=== PATIENT | male | born 1935 | race Caucasian/White ===

== ENCOUNTER 2017-01-29 07:21 | Inpatient (IN) ==
[2017-01-26 13:14] LABS: Basophils # (Auto) 0 K/mcL (0.0-0.3); Basophils % (Auto) 0.5 % (0.0-2.0); Eosinophils # (Auto) 0.1 K/mcL (0.0-0.7); Eosinophils % (Auto) 1.8 % (0.0-7.0); Granulocytes % (Auto) 77.7 % (38.0-78.0); Lymphocytes # (Auto) 0.9 K/mcL (1.5-4.8); Lymphocytes % (Auto) 13.2 % (15.5-49.0); Mean Cell Volume 86.2 fL (80.0-100.0); Mean Corpuscular HGB Conc 33.2 g/dL (31.0-36.0); Mean Corpuscular Hemoglobin 28.6 pg (26.0-34.0); Monocytes # (Auto) 0.5 K/mcL (0.1-0.9); Monocytes % (Auto) 6.8 % (1.0-12.0); Platelet Count 202 K/mcL (140-440); RBC 5.27 M/mcL (4.50-5.90); Red Cell Distribution Width 14.8 % (11.5-14.5)
[~2017-01-29 07:21] MED LIST: ceFAZolin 1 GM VIAL IV SCH
[2017-01-29] MEDS ORDERED: ONDANSETRON 4 MG/2 ML VIAL ONE (09:45)
[2017-01-29] MEDS ORDERED: PROPOFOL 200 MG/20 ML VIAL IV ONE (09:45)
[2017-01-29] MEDS ORDERED: KETAMINE 100 MG/ML ML ONE (09:45)
[2017-01-29] MEDS ORDERED: LIDOCAINE HCL/PF 100 MG/5 ML SYRINGE IV ONE (09:45)
[2017-01-29] MEDS ORDERED: GLYCOPYRROLATE 0.2 MG/ML VIAL IV ONE (09:45)
[2017-01-29] MEDS ORDERED: PHENYLEPHRINE 10 MG/ML VIAL ONE (09:45)
[2017-01-29] MEDS ORDERED: MIDAZOLAM 5 MG/5 ML VIAL ONE (09:45)
[2017-01-29] MEDS ORDERED: ceFAZolin 1 GM VIAL ONE (09:50)
[2017-01-29] MEDS ORDERED: fentaNYL 100 MCG/2 ML VIAL IV PRN (09:57)
[2017-01-29] MEDS ORDERED: METHOCARBAMOL 1,000 MG/10 ML VIAL IV PRN (09:57)
[2017-01-29] MEDS ORDERED: HYDROmorphone 2 MG/ML SYRINGE IV PRN (09:57)
[2017-01-29] MEDS ORDERED: IPRATROPIUM/ALBUTEROL 3 ML AMPUL.NEB NEB PRN (09:57)
[2017-01-29] MEDS ORDERED: NALOXONE HCL 0.4 MG/ML VIAL IV PRN (09:57)
[2017-01-29] MEDS ORDERED: FLUMAZENIL 0.1 MG/ML ML IV PRN (09:57)
[2017-01-29] MEDS ORDERED: METOPROLOL TARTRATE 5 MG/5 ML VIAL IV PRN (09:57)
[2017-01-29] MEDS ORDERED: BENZOCAINE/MENTHOL 1 LOZENGE PO PRN (09:57)
[2017-01-29] MEDS ORDERED: ePHEDrine 50 MG/ML AMPUL IV PRN (09:57)
[2017-01-29] MEDS ORDERED: ONDANSETRON 4 MG/2 ML VIAL IV PRN ×2 (09:57→10:43)
[2017-01-29] MEDS ORDERED: ATROPINE SULFATE 0.4 MG/ML VIAL IV PRN (09:57)
[2017-01-29] MEDS ORDERED: diphenhydrAMINE 50 MG/ML VIAL IV PRN (09:57)
[2017-01-29] MEDS ORDERED: LACTATED RINGERS 1,000 ML IV SCH (10:00)
[2017-01-29] MEDS ORDERED: HYDROcodone/APAP 10/325MG TABLET PO ONE (10:30)
[2017-01-29] MEDS ORDERED: HYDROcodone/APAP 5/325MG TABLET PO PRN (10:43)
[2017-01-29] MEDS ORDERED: ACETAMINOPHEN 500 MG TABLET PO PRN (10:44)
[2017-01-29] MEDS ORDERED: [UNRECOGNIZED DRUG - OTHER] NAS PRN (10:44)
[2017-01-29] MEDS ORDERED: LORazepam 0.5 MG TABLET PO PRN (10:44)
[2017-01-29] MEDS ORDERED: IPRATROPIUM 0.03% NAS PRN (10:44)
[2017-01-29] MEDS ORDERED: SODIUM CHLORIDE NAS PRN (10:44)
[2017-01-29] MEDS ORDERED: NON FORMULARY MEDICATION 1 DOSE MISCELL (Epinephrine [Epipen] 0.3 MG) SUB-Q SCH (10:45)
--- NOTE | 2017-01-29 10:45 | Brief Operative Note ---
Date of procedure: 01/29/17 Pre-op diagnosis: hematuria, phimosis Post-op diagnosis: same Procedure: cystoscopy, circumcision Grafts/Implants: No Anesthesia: GLMA Findings: see note Complications: none Surgeon: Timothy Espinosa Specimens Removed/Pathology: none sent Condition: stable Disposition: PACU
--- NOTE | 2017-01-29 10:46 | Discharge Plan ---
Discharge Plan - Patient/Caregiver Discharge Instructions Activity: increase activity as tolerated Diet: Regular Diet Additional Instructions: Activities as tolerated. Drink at least 8-10 glasses of fluid daily. If dressing falls off leave off. You may have some bleeding when you urinate for up to 5 days - Follow up Plan Follow up with: Timothy Espinosa MD [Physician] - 02/27/17 9:30 am Disposition: Home, Self-Care Prognosis: Good Rehab Potential: Good Overall status at discharge: patient is back to baseline
[2017-01-29] MEDS ORDERED: LIDOCAINE IJ ONE (10:52)
[2017-01-29] MEDS ORDERED: EPINEPHRINE IJ ONE (10:52)
--- NOTE | 2017-01-29 11:24 | Operative Note ---
DATE OF OPERATION: 01/29/2017 PREOPERATIVE DIAGNOSIS: Hematuria and phimosis. POSTOPERATIVE DIAGNOSIS: Hematuria and phimosis. PROCEDURE PERFORMED: Circumcision and cystoscopy. SURGEON: Timothy Espinosa MD INDICATION: The patient is an 81-year-old gentleman with Alzheimer's disease who has had blood in his diaper. They do not know if this is from the bowel or the bladder. He could not be examined because of a tight phimosis and presents now for treatment. PROCEDURE IN DETAIL: Patient was identified and consent was signed. He was given general anesthesia, placed in supine position, prepped and draped in a standard fashion. Penile block was performed using 0.25% Marcaine and this seemed to have a good block. We then had to do a dorsal slit because of the tightness of the foreskin and we were able to finally break down the adhesions and reprep the area. At this point the coronal margin appeared normal. There were no penile masses. We then were able to make a circumferential incision approximately 2 mm away from the coronal margin and carry this down to Lima's fascia. A corresponding incision was made along the shaft skin. The intervening skin was removed and bleeding was controlled with electrocautery. We reapproximated the cut edges with 3-0 Chromic and I was pleased with the overall appearance. At this time the cystoscopy was performed using a flexible cystoscope. We were able to enter the urethra. This appeared normal. Prostate did have trilobar hypertrophy and upon entering the bladder there was 4+ trabeculation. No tumors or masses were seen. Orifices were in their normal position. No abnormalities were noted. The cystoscope was removed. Sterile dressings were applied to the penis and the patient was awoken, taken to the recovery room in stable condition and tolerated the procedure well. There was minimal blood loss. ChristinaZ:kerry Job ID: [id number] Doc ID: [id number] Timothy Espinosa MD
[2017-01-29] MEDS ORDERED: DIAZEPAM 10 MG/2 ML SYRINGE IV PRN (12:05)
[2017-01-29] MEDS ORDERED: HALOPERIDOL LACTATE 5 MG/ML VIAL IV ONE (12:28)
[2017-01-29] MEDS ORDERED: LORazepam 2 MG/ML VIAL IV PRN ×2 (12:55→13:58)
[2017-01-29] MEDS ORDERED: HALOPERIDOL LACTATE 5 MG/ML VIAL IV PRN (12:56)
[2017-01-29] MEDS ORDERED: guaiFENesin/DEXTROMETHORPHAN ORAL SOL PO PRN (14:09)
[2017-01-29] MEDS: ACETAMINOPHEN 650 MG/65 ML BOTTLE IV PRN ×3 (15:03→21:37)
[2017-01-29] MEDS: 0.9 % SODIUM CHLORIDE 10 ML SYRINGE IV SCH ×2 (15:32→21:03)
[2017-01-29] MEDS: HYDROCORTISONE CRM 1% TUBE 30GM TOPICAL SCH (20:29)
[2017-01-29] MEDS: DIVALPROEX 125 MG CAP.SPRINK PO SCH (20:57)
[2017-01-29] MEDS ORDERED: LATANOPROST EYE OU SCH (21:00)
--- NOTE | 2017-01-30 07:48 | General Surgery Progress Note ---
Surgical - Auxillary Note - Subjective Patient Information: Note initiated : 01/30/17 at 7:44 am Service Date, if different from initiated Date: [] Patient: Timothy Carrington 81 y/o M admitted on for Cystoscopy, Circumcision. Chief Complaint: agitation Patient was stable through the night. had to be straight catheterized 2x and hodges catheter was placed without my knowledge. mental status is unchanged. WOULD not have placed catheter due to risk of self injury. have ordered catheter to be removed. may d/c to care center. f/u as outpatient.
[2017-01-30] MEDS ORDERED: MULTIVIT,THER IRON,CA,FA & MIN 1 TABLET PO SCH (09:00)
[2017-01-30] MEDS ORDERED: TIMOLOL OU SCH (09:00)
[2017-01-30] MEDS ORDERED: EYE OU SCH (09:00)
[2017-01-30] MEDS ORDERED: BRIMONIDINE TARTRATE OU SCH (09:00)
[2017-01-30] MEDS: 0.9 % SODIUM CHLORIDE 10 ML SYRINGE IV SCH ×3 (11:22→20:42)
[2017-01-30] MEDS: DIVALPROEX 125 MG CAP.SPRINK PO SCH ×3 (11:22→20:41)
[2017-01-30] MEDS: HYDROCORTISONE CRM 1% TUBE 30GM TOPICAL SCH ×2 (11:23→20:06)
[2017-01-30] MEDS: ACETAMINOPHEN 650 MG/65 ML BOTTLE IV PRN ×2 (13:00→21:41)
[2017-01-30 15:08] LABS: Mean Cell Volume 85.4 fL (80.0-100.0); Mean Corpuscular HGB Conc 33.5 g/dL (31.0-36.0); Mean Corpuscular Hemoglobin 28.6 pg (26.0-34.0); Platelet Count 183 K/mcL (140-440); RBC 5.46 M/mcL (4.50-5.90); Red Cell Distribution Width 14.5 % (11.5-14.5)
--- NOTE | 2017-01-30 15:10 | XRay Report ---
CLINICAL INFORMATION: Shortness of breath COMPARISON: None. FINDINGS: Heart size, mediastinum and pulmonary vessels are normal. There is minor bibasilar atelectasis no effusions. Bones soft tissues are normal IMPRESSION: Mild bibasilar atelectasis Interpreted and Authenticated by: Kai Bowers 01/30/17
[2017-01-30 15:45] LABS: Lymphocytes % 9 % (15-49); Monocytes % (Manual) 6 % (1-12); Platelet Estimate NORMAL (NORMAL); RBC Morphology NORMAL (NORMAL); Segmented Neutrophils % 85 % (38-78)
--- NOTE | 2017-01-30 16:43 | Internal Medicine Consult Note ---
Medical - CN: HPI - Data of Consult Consult date: 01/30/17 Requesting Physician: Timothy Espinosa Primary Care Provider: Jessica Quiroga Family Provider: Jessica Quiroga - Consult Narrative Reason for consult: acute change in mental status History of present illness: Mr. Carrington is a 81 year old M admitted for complaints of hematuria. Patient underwent cystoscopy by Dr. Espinosa. postprocedure patient has been getting progressively delirious confused and frequently hallucinating. To counter delirium and hallucinations patient receive doses of Ativan and Haldol. this morning he was fairly confused and therefore could not be discharged. Subsequently hospitalist service was consulted for further evaluation. Per nursing staff patient also as found to have temperature of 99.7. At the time of examination patient is accompanied with his and son. He was occasionally moaning but was not able to rovide answer to questions. most of the history was obtained from son and his . Patient resides at assisted care living. He suffers from advanced dementia and has not been complicated over the last year and a half. At his baseline he needs assistance for activities of daily living. As per his he was in his baseline state of health prior to the episode of hematuria. eview of records revealed edications including Haldol/lorazepam/Depakote/ hydromorphone that was administered on 01/29. at this time patient is currently being monitored. All sedatives and anxiolytics and opioids will be discontinued. 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) Dementia with behavioral disturbance (Chronic) Glaucoma (Chronic) Hematuria (Chronic) Herpes zoster (Chronic) History of gastroesophageal reflux (GERD) (Chronic) History of needle biopsy (Chronic) prostate Hyperlipidemia (Chronic) group home use of drug (Chronic) Nocturia (Chronic) Phimosis (Chronic) Prostate cancer (Chronic) Rash of face (Chronic) Rhinitis (Chronic) Rosacea (Chronic) Slowing of urinary stream (Chronic) Upper respiratory infection (Chronic) Surgical history: istory of colonoscopy (Chronic) History of eye surgery (Chronic) foreign body History of surgery (Chronic) needle/cath placement for brachyther applic in pelvic organs History of tonsillectomy and adenoidectomy (Chronic) Family history: reviewed and not pertinent Pertinent family history: Acute myocardial infarction Addictive gambling Alcoholism Diabetes Osteoarthritis Parkinsons disease Rheumatoid arthritis Social history: marital status: occupational status: retired smoking status: Former smoker alcohol intake frequency: does not drink substance use type: does not use Cognitive capacity: dvanced dementia Functional capacity: bed bound Smoking status: Former smoker Have you smoked in the last 12 months: No Drug use: none Medical - CN: Meds Home Medications Medication Instructions Recorded Confirmed Type acetaminophen 500 mg tablet 500 mg PO TID PRN tab 12/24/16 01/26/17 History brimonidine-timolol 0.2 %-0.5 % 1 drp OPHTHALMIC ONCE ml 12/24/16 01/26/17 History eye drops dextromethorphan-guaifenesin 10 15 ml PO Q6H PRN ml 12/24/16 01/26/17 History mg-100 mg/5 mL oral liquid divalproex 250 mg tablet,delayed 250 mg PO BID 12/24/16 01/26/17 History release epinephrine 0.3 mg/0.3 mL 0.3 mg SUB-Q ONCE 12/24/16 01/26/17 History injection, auto-injector hydrocortisone 1 % topical cream 1 applic TOPICAL BID g 12/24/16 01/26/17 History ipratropium bromide 0.03 % nasal 2 spray INTRANASAL TID PRN ml 12/24/16 History spray latanoprost 0.005 % eye drops 1 drp OPHTHALMIC QHS ml 12/24/16 01/26/17 History lorazepam 0.5 mg tablet 0.5 mg PO BID PRN tab 12/24/16 01/26/17 History multivitamin tablet 1 tab-cap PO QDAY 12/24/16 01/26/17 History sodium chloride 0.65 % nasal spray 2 spray INTRANASAL TID PRN ml 12/24/1601/26 History aerosol Allergies Allergy/AdvReac Type Severity Reaction Status Date / Time Bees Allergy Severe Anaphylaxis Uncoded 01/29/17 14:43 Medical - CN: Exam - Constitutional Vitals: Temp Pulse Resp BP Pulse Ox 98.4 F 74 20 131/79 90 01/30/17 15:54 01/30/17 04:00 01/30/17 15:54 01/30/17 15:54 01/30/17 15:54 General appearance: average body habitus, disheveled Exam: pupils symmetric, 2 mm oral cavity dry No eardischarge head normocephalic/atraumatic Neck lymphadenopathy S1 and S2E SM grade 1,occasionally irregular Diminished breath sounds bases abdomen soft No lymphedema or joint swelling. No skin lesions obtunded state,GCS 2 Neuro-could not be examined Medical - CN: Result - Labs CBC & Chem 7: 01/30/17 14:29 01/30/17 14:29 Labs: Short CBC 01/30/17 Range/Units 14:29 WBC 10.4 (4.5-11.0) K/mcL Hgb 15.6 (13.5-16.5) g/dL Hct 46.6 (41.0-55.0) % Plt Count 183 (140-440) K/mcL Medical - CN: A/P (1) Change in mental status Status: Acute Assessment and plan: * Acute changes in mental status-likely opioid/sedative induced. However start thiamine. Hold benzos/opioids. CT head if fails to improve. Biochemical profile /UA/CBC to rule out infectious/metabolic process. * Advance underlying dementia-continue monitoring * Deconditioning-consider SNF transfer * History of COPD continue bronchodilators plan * Workup as above * monitor for 24-48 hours
[2017-01-30 17:05] LABS: ALT/SGPT 19 U/l (0-40); Albumin 3.6 gm/dL (3.2-5.2); Albumin/Globulin Ratio 1.2 (1.0-2.3); Alkaline Phosphatase 86 U/L (39-117); Bilirubin,Direct < 0.2 mg/dL (0.0-0.3); Blood Urea Nitrogen 16 mg/dl (8-23); Gamma Glutamyl Transpeptidase 12 U/L (8-61); Magnesium 1.9 mg/dL (1.6-2.5); Uric Acid 6.9 mg/dL (2.5-8.0)
[2017-01-30] MEDS ORDERED: SODIUM CHLORIDE NAS PRN (18:08)
[2017-01-30] MEDS ORDERED: ACETAMINOPHEN 500 MG TABLET PO PRN (18:08)
[2017-01-30] MEDS ORDERED: ONDANSETRON 4 MG/2 ML VIAL IV PRN (18:08)
[2017-01-30] MEDS ORDERED: IPRATROPIUM 0.03% NAS PRN (18:08)
[2017-01-30] MEDS ORDERED: [UNRECOGNIZED DRUG - OTHER] NAS PRN (18:08)
[2017-01-30] MEDS ORDERED: guaiFENesin/DEXTROMETHORPHAN ORAL SOL PO PRN (18:08)
[2017-01-30] MEDS: LATANOPROST EYE OU SCH (20:06)
[2017-01-30] MEDS ORDERED: 0.9 % SODIUM CHLORIDE 1,000 ML IV SCH (20:30)
[2017-01-30] MEDS: BACITRACIN TOPICAL OINT 15 GM TUBE TOPICAL SCH ×2 (21:38)
[2017-01-31 02:48] LABS: Appearance,Urine CLEAR; Bacteria,Urine 0 /hpf (0); Bilirubin,Urine NEG (NEG); Color,Urine YELLOW; Glucose,Urine (UA) NEGATIVE (NEG); Leukocyte Esterase,Urine 75 /uL (NEG); Mucus,Urine FEW /hpf (0); Nitrate,Urine NEG (NEG); Protein,Urine NEG (NEG); Specific Gravity,Urine 1.018 (1.000-1.035); Urine Blood >=1.0 mg/dL (<0.03); Urine RBC 73 /hpf (0-1); Urine Squamous Epithelial Cell 0 /hpf (0-4); Urine Transitional Epi Cells < 1 /hpf (0-2); Urine WBC 48 /hpf (0-4); Urobilinogen,Urine NEG (NEG)
[2017-01-31] MEDS: 0.9 % SODIUM CHLORIDE 10 ML SYRINGE IV SCH ×2 (04:44→12:41)
[2017-01-31 06:19] LABS: Mean Cell Volume 85.9 fL (80.0-100.0); Mean Corpuscular HGB Conc 33.4 g/dL (31.0-36.0); Mean Corpuscular Hemoglobin 28.7 pg (26.0-34.0); Platelet Count 184 K/mcL (140-440); RBC 5.51 M/mcL (4.50-5.90); Red Cell Distribution Width 14.4 % (11.5-14.5)
[2017-01-31 06:57] LABS: ALT/SGPT 19 U/l (0-40); Albumin 3.4 gm/dL (3.2-5.2); Albumin/Globulin Ratio 1.1 (1.0-2.3); Alkaline Phosphatase 80 U/L (39-117); Bilirubin,Direct < 0.2 mg/dL (0.0-0.3); Blood Urea Nitrogen 16 mg/dl (8-23); Gamma Glutamyl Transpeptidase 12 U/L (8-61); Uric Acid 6.8 mg/dL (2.5-8.0)
[2017-01-31 08:07] LABS: Eosinophils % (Manual) 2 % (0-7); Lymphocytes % 12 % (15-49); Monocytes % (Manual) 7 % (1-12); Platelet Estimate NORMAL (NORMAL); RBC Morphology NORMAL (NORMAL); Segmented Neutrophils % 78 % (38-78)
[2017-01-31] MEDS: TIMOLOL OU SCH (08:13)
[2017-01-31] MEDS: EYE OU SCH (08:13)
[2017-01-31] MEDS: BRIMONIDINE TARTRATE OU SCH (08:13)
[2017-01-31] MEDS: HYDROCORTISONE CRM 1% TUBE 30GM TOPICAL SCH ×2 (08:14→21:37)
[2017-01-31] MEDS: BACITRACIN TOPICAL OINT 15 GM TUBE TOPICAL SCH ×4 (08:21→19:52)
[2017-01-31] MEDS: DIVALPROEX 125 MG CAP.SPRINK PO SCH ×2 (08:22→21:30)
[2017-01-31] MEDS: MULTIVIT,THER IRON,CA,FA & MIN 1 TABLET PO SCH (08:22)
--- NOTE | 2017-01-31 09:46 | Internal Med Progress Note ---
Medical - PN: Subj Patient information: Note initiated : 01/31/17 at 9:44 am Service Date, if different from initiated Date: [] Patient: Timothy Carrington a 81 y/o M admitted on 01/30/17 for Cystoscopy, Circumcision. Chief Complaint: [] Interval history: 01/30- Mr. Carrington is a 81 year old M admitted for complaints of hematuria. Patient underwent cystoscopy by Dr. Espinosa. postprocedure patient has been getting progressively delirious confused and frequently hallucinating. To counter delirium and hallucinations patient receive doses of Ativan and Haldol. this morning he was fairly confused and therefore could not be discharged. Subsequently hospitalist service was consulted for further evaluation. Per nursing staff patient also as found to have temperature of 99.7. At the time of examination patient is accompanied with his and son. He was occasionally moaning but was not able to rovide answer to questions. most of the history was obtained from son and his . Patient resides at assisted care living. He suffers from advanced dementia and has not been complicated over the last year and a half. At his baseline he needs assistance for activities of daily living. As per his he was in his baseline state of health prior to the episode of hematuria. eview of records revealed edications including Haldol/lorazepam/Depakote/ hydromorphone that was administered on 01/29. at this time patient is currently being monitored. All sedatives and anxiolytics and opioids will be discontinued. 01/31- patient doing well. No overnight events. ble to open eyeshowever still unable to respond to commands. at bedside. Patient being fed by . No concerns per staff. nticipate discharge in 24-48 hours if mentation and cognition continues to improve. clearly feels he is still not at baseline - Constitutional Vitals: Vital Signs Temp Pulse Resp BP Pulse Ox 97.7 F 83 22 141/69 92 01/31/17 07:31 01/31/17 03:30 01/31/17 07:31 01/31/17 07:31 01/31/17 07:31 Period Temp Pulse Resp BP Sys/Polanco Pulse Ox Last 24 Hr 97.7 F-99.0 F 69-85 18-22 112-155/67-82 90-95 Intake and Output 01/30/17 01/31/17 01/31/17 21:59 05:59 13:59 Intake Total 65 / 65 Output Total 602 / 602 601 / 601 1500 / 1500 Balance -602 / -602 -536 / -536 -1500 / -1500 Weight 168 lb 5 oz Intake & Output: Intake & Output 01/30/17 01/31/17 01/31/17 21:59 05:59 13:59 Intake Total 65 / 65 Output Total 602 / 602 601 / 601 1500 / 1500 Balance -602 / -602 -536 / -536 -1500 / -1500 Weight 168 lb 5 oz Intake: IV 65 / 65 Output: Urine Catheter Amount 1000 / 1000 Void Amount 600 / 600 600 / 600 500 / 500 Straight 600 / 600 500 / 500 Straight Cath #3 600 / 600 # of times incontinent of 2 / 2 1 / 1 urine Other: Meal 1/2 jello, few sips of water Percent of Meal Consumed 50% Feeding Ability Total Assistance # Bowel Movements 1 # of times incontinent of 1 Bowels General appearance: cooperative, no acute distress Exam: more awake no agitation nonlabored breathing nondistended abdomen Medical - PN: Obj Da - Labs CBC & Chem 7: 01/31/17 04:44 01/31/17 04:44 Labs: Abnormal Lab Results 01/31/17 01/31/17 01/30/17 04:44 04:44 14:29 Seg Neutrophils % Lymphocytes % 12 L Carbon Dioxide 21 L 21 L Anion Gap 17.0 H Calcium 8.5 L 8.5 L AST 38 H Urine Ketones Urine Occult Blood Ur Leukocyte Esterase Urine RBC Urine WBC 01/30/17 01/30/17 14:29 01:12 Seg Neutrophils % 85 H Lymphocytes % 9 L Carbon Dioxide Anion Gap Calcium AST Urine Ketones 20 A Urine Occult Blood >=1.0 A Ur Leukocyte Esterase 75 A Urine RBC 73 H Urine WBC 48 H Meds: Medications Acetaminophen (Tylenol) 500 mg PO TIDP PRN PRN Reason: Pain Bacitracin (Bacitracin Topical Oint) 1 dose TOPICAL QID [facility] Last Admin: 01/31/17 08:21 Dose: 1 pkg Divalproex Sodium (Depakote Sprinkles) 250 mg PO BID [facility] Last Admin: 01/31/17 08:22 Dose: 250 mg Guaifenesin (Robitussin Dm) 15 ml PO Q6HP PRN PRN Reason: Allergy Symptoms Hydrocortisone (Hc Crm 1%) 1 dose TOPICAL BID [facility] Last Admin: 01/31/17 08:14 Dose: Not Given Acetaminophen (Ofirmev) 650 mg in 65 mls @ 130 mls/hr IV Q6HP PRN PRN Reason: PAIN/FEVER > 101 Last Infusion: 01/30/17 22:11 Dose: Infused Sodium Chloride (Sodium Chloride 0.9%) 1,000 mls @ 40 mls/hr IV .Q24H [facility] Last Admin: 01/30/17 20:42 Dose: 40 mls/hr Iron Carb/Multivit/[place]oure/Folic Acid (Multivitamin W/Minerals) 1 tab PO DAILY [facility] Last Admin: 01/31/17 08:22 Dose: 1 tab Ondansetron HCl (Zofran) 4 mg IV Q6HP PRN PRN Reason: Nausea And Vomiting Ipratropium 0.03% Nasal [place] [ Atrovent] 0.03% Nasal [place] 2 dose MIKAYLA TID PRN PRN Reason: Allergy Symptoms Sodium Chloride [ (Zap] Nasal [place]) 2 dose MIKAYLA TID PRN PRN Reason: Allergy Symptoms Brimonidine Tartrate /Timolol [Combigan] 0.2%-0.5% Eye Drops 1 dose OU DAILY [facility] Last Admin: 01/31/17 08:13 Dose: Not Given Latanoprost [Xalatan (] Eye Drops) 1 dose OU QHS [facility] Last Admin: 01/30/17 20:06 Dose: Not Given Sodium Chloride (Saline Flush) 5 ml IV Q8 [facility] Last Admin: 01/31/17 04:44 Dose: Not Given Medical - PN: A/P - Time Spent With Patient Total time spent is greater than 50% in coordination of care (as documented) at patient's floor/unit and/or counseling patient: 15 - 24 minutes (1) Change in mental status Status: Acute Assessment and plan: * Acute changes in mental status-likely opioid/sedative induced. clinically improved. Continue holding sedatives and hypnotics. * Advance underlying dementia-continue monitoring. Anticipate discharge in 24 hours * Deconditioning-consider SNF transfer a family agreeable * History of COPD continue bronchodilators nydia * physical therapy * observation for additional 24 hours * pre-existing medical condition on home meds Current Visit: Yes
[2017-01-31] MEDS: LATANOPROST EYE OU SCH (19:30)
[2017-02-01 06:30] LABS: Lymphocytes % 6 % (15-49); Monocytes % (Manual) 3 % (1-12); Platelet Estimate NORMAL (NORMAL); RBC Morphology NORMAL (NORMAL); Segmented Neutrophils % 89 % (38-78)
[2017-02-01 06:31] LABS: Mean Cell Volume 83.7 fL (80.0-100.0); Mean Corpuscular HGB Conc 33.5 g/dL (31.0-36.0); Platelet Count 149 K/mcL (140-440); RBC 6.16 M/mcL (4.50-5.90); Red Cell Distribution Width 13.8 % (11.5-14.5)
[2017-02-01 07:26] LABS: ALT/SGPT 25 U/l (0-40); Albumin 3.7 gm/dL (3.2-5.2); Albumin/Globulin Ratio 1.1 (1.0-2.3); Alkaline Phosphatase 87 U/L (39-117); Bilirubin,Direct < 0.2 mg/dL (0.0-0.3); Blood Urea Nitrogen 16 mg/dl (8-23); Gamma Glutamyl Transpeptidase 12 U/L (8-61); Uric Acid 6.6 mg/dL (2.5-8.0)
[2017-02-01] MEDS: DIVALPROEX 125 MG CAP.SPRINK PO SCH ×2 (08:02→20:30)
[2017-02-01] MEDS: MULTIVIT,THER IRON,CA,FA & MIN 1 TABLET PO SCH (08:02)
[2017-02-01] MEDS: EYE OU SCH (08:03)
[2017-02-01] MEDS: BRIMONIDINE TARTRATE OU SCH (08:03)
[2017-02-01] MEDS: HYDROCORTISONE CRM 1% TUBE 30GM TOPICAL SCH ×2 (08:03→20:32)
[2017-02-01] MEDS: BACITRACIN TOPICAL OINT 15 GM TUBE TOPICAL SCH ×4 (08:03→20:31)
[2017-02-01] MEDS: TIMOLOL OU SCH (08:03)
--- NOTE | 2017-02-01 09:32 | Internal Med Progress Note ---
Medical - PN: Subj Patient information: Note initiated : 02/01/17 at 9:28 am Service Date, if different from initiated Date: [] Patient: Timothy Carrington a 81 y/o M admitted on 01/30/17 for Cystoscopy, Circumcision. Chief Complaint: [] Interval history: 01/30- Mr. Carrington is a 81 year old M admitted for complaints of hematuria. Patient underwent cystoscopy by Dr. Espinosa. postprocedure patient has been getting progressively delirious confused and frequently hallucinating. To counter delirium and hallucinations patient receive doses of Ativan and Haldol. this morning he was fairly confused and therefore could not be discharged. Subsequently hospitalist service was consulted for further evaluation. Per nursing staff patient also as found to have temperature of 99.7. At the time of examination patient is accompanied with his and son. He was occasionally moaning but was not able to rovide answer to questions. most of the history was obtained from son and his . Patient resides at assisted care living. He suffers from advanced dementia and has not been complicated over the last year and a half. At his baseline he needs assistance for activities of daily living. As per his he was in his baseline state of health prior to the episode of hematuria. eview of records revealed edications including Haldol/lorazepam/Depakote/ hydromorphone that was administered on 01/29. at this time patient is currently being monitored. All sedatives and anxiolytics and opioids will be discontinued. 01/31- patient doing well. No overnight events. ble to open eyeshowever still unable to respond to commands. at bedside. Patient being fed by . No concerns per staff. nticipate discharge in 24-48 hours if mentation and cognition continues to improve. clearly feels he is still not at baseline 02/01- atient more alert however tachypneic. White count 13.4 up from 8000. await chest x-ray rule out aspiration pneumonia. Start empiric Zosyn. Blood cultures. MAXIMUM TEMPERATURE 99.4. Family at bedside. Ongoing physical therapy. Not quite at baseline. Anticipate SNF transfer on discharge if clinically improved in the next 48-72 hours - Constitutional Vitals: Vital Signs Temp Pulse Resp BP Pulse Ox 99.1 F H 85 24 H 118/76 92 02/01/17 07:43 02/01/17 03:40 02/01/17 07:43 02/01/17 07:43 02/01/17 07:43 Period Temp Pulse Resp BP Sys/Polanco Pulse Ox Last 24 Hr 97.9 F-99.4 F 85-93 22-24 118-166/76-97 91-93 Intake and Output 01/31/17 02/01/17 02/01/17 21:59 05:59 13:59 Intake Total 0 / 0 200 / 200 120 / 120 Output Total 2 / 2 3 / 3 1 / 1 Balance -2 / -2 197 / 197 119 / 119 Weight 165 lb Intake & Output: Intake & Output 01/31/17 02/01/17 02/01/17 21:59 05:59 13:59 Intake Total 0 / 0 200 / 200 120 / 120 Output Total 2 / 2 3 / 3 1 / 1 Balance -2 / -2 197 / 197 119 / 119 Weight 165 lb Intake: Oral 0 / 0 200 / 200 120 / 120 Output: # of times incontinent of 2 / 2 3 / 3 urine Other: Meal applesauce cup Breakfast Percent of Meal Consumed 100% 100% Feeding Ability Total Assistance Total Assistance # Bowel Movements 1 General appearance: no acute distress Exam: nonverbal following commands minimally Nonlabored breathing but tachypneic No pallor Medical - PN: Obj Da - Labs CBC & Chem 7: 02/01/17 04:36 02/01/17 04:36 Labs: Abnormal Lab Results 02/01/17 02/01/17 01/31/17 04:36 04:36 04:44 WBC 13.4 H RBC 6.16 H Hgb 17.3 H Seg Neutrophils % 89 H Lymphocytes % 6 L Carbon Dioxide 21 L Anion Gap 17.0 H Glucose 107 H Calcium 8.5 L AST 43 H 38 H Urine Ketones Urine Occult Blood Ur Leukocyte Esterase Urine RBC Urine WBC 01/31/17 01/30/17 01/30/17 04:44 14:29 14:29 WBC RBC Hgb Seg Neutrophils % 85 H Lymphocytes % 12 L 9 L Carbon Dioxide 21 L Anion Gap 17.0 H Glucose Calcium 8.5 L AST Urine Ketones Urine Occult Blood Ur Leukocyte Esterase Urine RBC Urine WBC 01/30/17 01:12 WBC RBC Hgb Seg Neutrophils % Lymphocytes % Carbon Dioxide Anion Gap Glucose Calcium AST Urine Ketones 20 A Urine Occult Blood >=1.0 A Ur Leukocyte Esterase 75 A Urine RBC 73 H Urine WBC 48 H Meds: Medications Acetaminophen (Tylenol) 500 mg PO TIDP PRN PRN Reason: Pain Bacitracin (Bacitracin Topical Oint) 1 dose TOPICAL QID [facility] Last Admin: 02/01/17 08:03 Dose: 1 pkg Divalproex Sodium (Depakote Sprinkles) 250 mg PO BID [facility] Last Admin: 02/01/17 08:02 Dose: 250 mg Guaifenesin (Robitussin Dm) 15 ml PO Q6HP PRN PRN Reason: Allergy Symptoms Hydrocortisone (Hc Crm 1%) 1 dose TOPICAL BID [facility] Last Admin: 02/01/17 08:03 Dose: Not Given Acetaminophen (Ofirmev) 650 mg in 65 mls @ 130 mls/hr IV Q6HP PRN PRN Reason: PAIN/FEVER > 101 Last Infusion: 01/30/17 22:11 Dose: Infused Iron Carb/Multivit/Bottom Liquor Attendant/Folic Acid (Multivitamin W/Minerals) 1 tab PO DAILY [facility] Last Admin: 02/01/17 08:02 Dose: 1 tab Ondansetron HCl (Zofran) 4 mg IV Q6HP PRN PRN Reason: Nausea And Vomiting Ipratropium 0.03% Nasal [place] [ Atrovent] 0.03% Nasal [place] 2 dose MIKAYLA TID PRN PRN Reason: Allergy Symptoms Sodium Chloride [ ([place]] Nasal [place]) 2 dose MIKAYLA TID PRN PRN Reason: Allergy Symptoms Brimonidine Tartrate /Timolol [Combigan] 0.2%-0.5% Eye Drops 1 dose OU DAILY [facility] Last Admin: 02/01/17 08:03 Dose: Not Given Latanoprost [Xalatan (] Eye Drops) 1 dose OU QHS [facility] Last Admin: 01/31/17 19:30 Dose: 1 dose Medical - PN: A/P - Time Spent With Patient Total time spent is greater than 50% in coordination of care (as documented) at patient's floor/unit and/or counseling patient: 25 - 35 minutes (1) Change in mental status Status: Acute Assessment and plan: * Acute changes in mental status-likely opioid/sedative induced. clinically improved. Continue holding sedatives and hypnotics. * leukocytosis-Rule out aspiration pneumonia ith chest x-ray. Blood cultures. Start antibiotic coverage. * History of COPD continue bronchodilators * Deconditioning-nticipate SNF transfer Plan * Physical therapy * ST eval * blood cultures/chest x-ray * Antibiotic coverage * transfer to inpatient status if evidence of pneumonia on chest imaging Current Visit: Yes
[2017-02-01] MEDS: PIPERACILLIN SODIUM/TAZOBACTAM 3.375 GM in DEXTROSE 5% IN WATER 50 ML IV SCH ×3 (11:39→17:55)
--- NOTE | 2017-02-01 13:26 | XRay Report ---
CLINICAL INFORMATION: Shortness of breath COMPARISON: 01/30/2017 FINDINGS: Heart size, mediastinum and pulmonary vessels are normal. There is mild atelectasis in both infrahilar regions. No effusions. IMPRESSION: Mild atelectasis - both infrahilar regions. Interpreted and Authenticated by: Kai Bowers 02/01/17
[2017-02-01] MEDS: LATANOPROST EYE OU SCH (21:31)
[2017-02-02] MEDS: PIPERACILLIN SODIUM/TAZOBACTAM 3.375 GM in DEXTROSE 5% IN WATER 50 ML IV SCH ×5 (00:25→23:22)
[2017-02-02 06:03] LABS: Mean Cell Volume 87.3 fL (80.0-100.0); Mean Corpuscular HGB Conc 32.6 g/dL (31.0-36.0); Mean Corpuscular Hemoglobin 28.5 pg (26.0-34.0); Platelet Count 206 K/mcL (140-440); Red Cell Distribution Width 14.6 % (11.5-14.5)
[2017-02-02 06:23] LABS: ALT/SGPT 25 U/l (0-40); Albumin 3.4 gm/dL (3.2-5.2); Alkaline Phosphatase 87 U/L (39-117); Bilirubin,Direct < 0.2 mg/dL (0.0-0.3); Blood Urea Nitrogen 15 mg/dl (8-23); Gamma Glutamyl Transpeptidase 20 U/L (8-61); Uric Acid 5.3 mg/dL (2.5-8.0)
[2017-02-02 06:59] LABS: Band Neutrophils % 1 % (0-10); Basophils % (Manual) 1 % (0-2); Eosinophils % (Manual) 5 % (0-7); Lymphocytes % 8 % (15-49); Monocytes % (Manual) 5 % (1-12); Platelet Estimate NORMAL (NORMAL); RBC Morphology NORMAL (NORMAL); Segmented Neutrophils % 80 % (38-78)
[2017-02-02] MEDS: DIVALPROEX 125 MG CAP.SPRINK PO SCH ×2 (07:10→20:06)
[2017-02-02] MEDS: MULTIVIT,THER IRON,CA,FA & MIN 1 TABLET PO SCH (07:10)
[2017-02-02] MEDS: BACITRACIN TOPICAL OINT 15 GM TUBE TOPICAL SCH ×4 (07:17→20:21)
[2017-02-02] MEDS: HYDROCORTISONE CRM 1% TUBE 30GM TOPICAL SCH ×2 (07:17→21:56)
--- NOTE | 2017-02-02 08:59 | XRay Report ---
CLINICAL INFORMATION: Cough COMPARISON: 02/01/2017 FINDINGS: Heart size, mediastinum and pulmonary vessels are normal. Subsegmental bibasilar atelectasis noted. No infiltrates or effusions. IMPRESSION: Subsegmental bibasilar atelectasis. No infiltrates Interpreted and Authenticated by: Kai Bowers 02/02/17
[2017-02-02] MEDS: ACETAMINOPHEN 650 MG/65 ML BOTTLE IV PRN (09:08)
--- NOTE | 2017-02-02 09:27 | Internal Med Progress Note ---
Medical - PN: Subj Patient information: Note initiated : 02/02/17 at 9:25 am Service Date, if different from initiated Date: [] Patient: Timothy Carrington a 81 y/o M admitted on 02/01/17 for Cystoscopy, Circumcision. Chief Complaint: [] Interval history: 01/30- Mr. Carrington is a 81 year old M admitted for complaints of hematuria. Patient underwent cystoscopy by Dr. Espinosa. postprocedure patient has been getting progressively delirious confused and frequently hallucinating. To counter delirium and hallucinations patient receive doses of Ativan and Haldol. this morning he was fairly confused and therefore could not be discharged. Subsequently hospitalist service was consulted for further evaluation. Per nursing staff patient also as found to have temperature of 99.7. At the time of examination patient is accompanied with his and son. He was occasionally moaning but was not able to rovide answer to questions. most of the history was obtained from son and his . Patient resides at assisted care living. He suffers from advanced dementia and has not been complicated over the last year and a half. At his baseline he needs assistance for activities of daily living. As per his he was in his baseline state of health prior to the episode of hematuria. eview of records revealed edications including Haldol/lorazepam/Depakote/ hydromorphone that was administered on 01/29. at this time patient is currently being monitored. All sedatives and anxiolytics and opioids will be discontinued. 01/31- patient doing well. No overnight events. ble to open eyeshowever still unable to respond to commands. at bedside. Patient being fed by . No concerns per staff. nticipate discharge in 24-48 hours if mentation and cognition continues to improve. clearly feels he is still not at baseline 02/01- atient more alert however tachypneic. White count 13.4 up from 8000. await chest x-ray rule out aspiration pneumonia. Start empiric Zosyn. Blood cultures. MAXIMUM TEMPERATURE 99.4. Family at bedside. Ongoing physical therapy. Not quite at baseline. Anticipate SNF transfer on discharge if clinically improved in the next 48-72 hours 02/02-patient clinically improving however persistent spells of aspiration on attempts to feed. case discussed with patient's that in light of recurrent aspiration he would require group home hometherapy eval and supervise feeding. If however he continues to aspirate palliative care would be an option given patient's advanced dementia and poor baseline functional status and quality of life. white count at 14,000. on broad antibiotic coverage. epeat chest x-ray shows basilar infiltrates. Anticipate additional 24-48 hours hospitalizationand transfer to SNF - Constitutional Vitals: Vital Signs Temp Pulse Resp BP Pulse Ox 98 F 82 24 H 122/73 94 02/02/17 06:43 02/02/17 03:48 02/02/17 06:43 02/02/17 06:43 02/02/17 07:22 Period Temp Pulse Resp BP Sys/[place]anco Pulse Ox Last 24 Hr 97.9 F-99.3 F 82-91 20-24 122-148/73-88 92-95 Intake and Output 02/01/17 02/02/17 02/02/17 21:59 05:59 13:59 Intake Total 100 / 100 50 / 50 Output Total Balance 97 / 97 47 / 47 - / - Weight 168 lb Intake & Output: Intake & Output 02/01/17 02/02/17 02/02/17 21:59 05:59 13:59 Intake Total 100 / 100 50 / 50 Output Total Balance 97 / 97 47 / 47 - / - Weight 168 lb Intake: IV 50 / 50 50 / 50 Zosyn 3.375 gm In 50 / 50 50 / 50 Dextrose 5% in Water 50 ml @ 100 mls/hr IV Q6H [facility] Rx#:[id number] Oral 50 / 50 Output: # of times incontinent of urine Other: # Voids 1 1 General appearance: no acute distress Exam: advanced dementia limiting communication No signs of agitation frequent spells of coughing and choking episodes nonlabored breathing Medical - PN: Obj Da - Labs CBC & Chem 7: 02/02/17 04:28 02/02/17 04:28 Labs: Abnormal Lab Results 02/02/17 02/02/17 02/01/17 04:28 04:28 04:36 WBC 13.9 H RBC Hgb RDW 14.6 H Seg Neutrophils % 80 H Lymphocytes % 8 L Carbon Dioxide Anion Gap 17.0 H Glucose 106 H 107 H Calcium AST 39 H 43 H Urine Ketones Urine Occult Blood Ur Leukocyte Esterase Urine RBC Urine WBC 02/01/17 01/31/17 01/31/17 04:36 04:44 04:44 WBC 13.4 H RBC 6.16 H Hgb 17.3 H RDW Seg Neutrophils % 89 H Lymphocytes % 6 L 12 L Carbon Dioxide 21 L Anion Gap Glucose Calcium 8.5 L AST 38 H Urine Ketones Urine Occult Blood Ur Leukocyte Esterase Urine RBC Urine WBC 01/30/17 01/30/17 01/30/17 14:29 14:29 01:12 WBC RBC Hgb RDW Seg Neutrophils % 85 H Lymphocytes % 9 L Carbon Dioxide 21 L Anion Gap 17.0 H Glucose Calcium 8.5 L AST Urine Ketones 20 A Urine Occult Blood >=1.0 A Ur Leukocyte Esterase 75 A Urine RBC 73 H Urine WBC 48 H Meds: Medications Acetaminophen (Tylenol) 500 mg PO TIDP PRN PRN Reason: Pain Bacitracin (Bacitracin Topical Oint) 1 dose TOPICAL QID [facility] Last Admin: 02/02/17 07:17 Dose: 1 pkg Divalproex Sodium (Depakote Sprinkles) 250 mg PO BID [facility] Last Admin: 02/02/17 07:10 Dose: 250 mg Guaifenesin (Robitussin Dm) 15 ml PO Q6HP PRN PRN Reason: Allergy Symptoms Hydrocortisone (Hc Crm 1%) 1 dose TOPICAL BID [facility] Last Admin: 02/02/17 07:17 Dose: Not Given Acetaminophen (Ofirmev) 650 mg in 65 mls @ 130 mls/hr IV Q6HP PRN PRN Reason: PAIN/FEVER > 101 Last Admin: 02/02/17 09:08 Dose: 130 mls/hr Piperacillin Sod/Tazobactam (Sod 3.375 gm/ Dextrose) 50 mls @ 100 mls/hr IV Q6H [facility] Last Admin: 02/02/17 05:49 Dose: 100 mls/hr Iron Carb/Multivit/[place]/Folic Acid (Multivitamin W/Minerals) 1 tab PO DAILY [facility] Last Admin: 02/02/17 07:10 Dose: 1 tab Ondansetron HCl (Zofran) 4 mg IV Q6HP PRN PRN Reason: Nausea And Vomiting Ipratropium 0.03% Nasal [place] [ Atrovent] 0.03% Nasal [place] 2 dose MIKAYLA TID PRN PRN Reason: Allergy Symptoms Sodium Chloride [ ([place]] Nasal [place]) 2 dose MIKAYLA TID PRN PRN Reason: Allergy Symptoms Brimonidine Tartrate /Timolol [Combigan] 0.2%-0.5% Eye Drops 1 dose OU DAILY [facility] Last Admin: 02/01/17 08:03 Dose: Not Given Latanoprost [Xalatan (] Eye Drops) 1 dose OU QHS [facility] Last Admin: 02/01/17 21:31 Dose: 1 dose Medical - PN: A/P - Time Spent With Patient Total time spent is greater than 50% in coordination of care (as documented) at patient's floor/unit and/or counseling patient: 25 - 35 minutes (1) Change in mental status Status: Acute Assessment and plan: * Acute changes in mental status-likely opioid/sedative induced. clinically improved. Continue holding sedatives and hypnotics. * basilar infiltrates-possible early aspiration pneumonia. Continue aspiration precautions/ therapy evaland dysphagia diet * Sepsis-continue antibiotic coverage. ikely aspiration pneumonia * History of COPD continue bronchodilators * Deconditioning-Anticipate SNF transfer Plan * Physical therapy * ST eval * Antibiotic coverage * ysphagia diet Current Visit: Yes
[2017-02-02] MEDS: TIMOLOL OU SCH (10:47)
[2017-02-02] MEDS: BRIMONIDINE TARTRATE OU SCH (10:47)
[2017-02-02] MEDS: EYE OU SCH (10:47)
[2017-02-02] MEDS: LATANOPROST EYE OU SCH (20:08)
[2017-02-03] MEDS: PIPERACILLIN SODIUM/TAZOBACTAM 3.375 GM in DEXTROSE 5% IN WATER 50 ML IV SCH ×4 (05:10→23:48)
[2017-02-03 05:54] LABS: Mean Cell Volume 86.4 fL (80.0-100.0); Mean Corpuscular HGB Conc 33.4 g/dL (31.0-36.0); Mean Corpuscular Hemoglobin 28.9 pg (26.0-34.0); Platelet Count 219 K/mcL (140-440); RBC 5.43 M/mcL (4.50-5.90); Red Cell Distribution Width 14.1 % (11.5-14.5)
[2017-02-03 06:12] LABS: ALT/SGPT 25 U/l (0-40); Albumin 3.1 gm/dL (3.2-5.2); Albumin/Globulin Ratio 0.9 (1.0-2.3); Alkaline Phosphatase 72 U/L (39-117); Bilirubin,Direct < 0.2 mg/dL (0.0-0.3); Blood Urea Nitrogen 16 mg/dl (8-23); Gamma Glutamyl Transpeptidase 12 U/L (8-61); Magnesium 2.1 mg/dL (1.6-2.5); Uric Acid 4.5 mg/dL (2.5-8.0)
[2017-02-03 06:48] LABS: Eosinophils % (Manual) 3 % (0-7); Lymphocytes % 13 % (15-49); Monocytes % (Manual) 7 % (1-12); Platelet Estimate NORMAL (NORMAL); RBC Morphology NORMAL (NORMAL); Segmented Neutrophils % 77 % (38-78)
[2017-02-03] MEDS: BACITRACIN TOPICAL OINT 15 GM TUBE TOPICAL SCH ×4 (07:32→20:09)
[2017-02-03] MEDS: DIVALPROEX 125 MG CAP.SPRINK PO SCH ×2 (07:32→20:09)
[2017-02-03] MEDS: MULTIVIT,THER IRON,CA,FA & MIN 1 TABLET PO SCH (07:32)
[2017-02-03] MEDS: HYDROCORTISONE CRM 1% TUBE 30GM TOPICAL SCH ×2 (08:27→20:09)
[2017-02-03] MEDS: EYE OU SCH (08:28)
[2017-02-03] MEDS: BRIMONIDINE TARTRATE OU SCH (08:28)
[2017-02-03] MEDS: TIMOLOL OU SCH (08:28)
--- NOTE | 2017-02-03 09:53 | Internal Med Progress Note ---
Medical - PN: Subj Patient information: Note initiated : 02/03/17 at 9:50 am Service Date, if different from initiated Date: [] Patient: Timothy Carrington a 81 y/o M admitted on 02/01/17 for Cystoscopy, Circumcision. Chief Complaint: [] Interval history: 01/30- Mr. Carrington is a 81 year old M admitted for complaints of hematuria. Patient underwent cystoscopy by Dr. Espinosa. postprocedure patient has been getting progressively delirious confused and frequently hallucinating. To counter delirium and hallucinations patient receive doses of Ativan and Haldol. this morning he was fairly confused and therefore could not be discharged. Subsequently hospitalist service was consulted for further evaluation. Per nursing staff patient also as found to have temperature of 99.7. At the time of examination patient is accompanied with his and son. He was occasionally moaning but was not able to rovide answer to questions. most of the history was obtained from son and his . Patient resides at assisted care living. He suffers from advanced dementia and has not been complicated over the last year and a half. At his baseline he needs assistance for activities of daily living. As per his he was in his baseline state of health prior to the episode of hematuria. eview of records revealed edications including Haldol/lorazepam/Depakote/ hydromorphone that was administered on 01/29. at this time patient is currently being monitored. All sedatives and anxiolytics and opioids will be discontinued. 01/31- patient doing well. No overnight events. ble to open eyeshowever still unable to respond to commands. at bedside. Patient being fed by . No concerns per staff. nticipate discharge in 24-48 hours if mentation and cognition continues to improve. clearly feels he is still not at baseline 02/01- atient more alert however tachypneic. White count 13.4 up from 8000. await chest x-ray rule out aspiration pneumonia. Start empiric Zosyn. Blood cultures. MAXIMUM TEMPERATURE 99.4. Family at bedside. Ongoing physical therapy. Not quite at baseline. Anticipate SNF transfer on discharge if clinically improved in the next 48-72 hours 02/02-patient clinically improving however persistent spells of aspiration on attempts to feed. case discussed with patient's that in light of recurrent aspiration he would require halfway hometherapy eval and supervise feeding. If however he continues to aspirate palliative care would be an option given patient's advanced dementia and poor baseline functional status [place] [id number]. on broad antibiotic coverage. epeat chest x-ray shows basilar infiltrates. Anticipate additional 24-48 hours hospitalization and transfer to SNF 02/03- Patient clinically improved with downtrending leukocytosis from 13.9-9.8. no overnight fever chills nausea vomiting CP/SOB. Near baseline. awaiting SNF transfer likely in 24 hours. table labs and hemodynamics. on antibiotic coverage for UTI and possible aspiration.urine cultures negative so far - Constitutional Vitals: Vital Signs Temp Pulse Resp BP Pulse Ox 98 F 73 24 H 154/76 90 02/03/17 07:14 02/03/17 03:30 02/03/17 07:14 02/03/17 03:30 02/03/17 07:14 Period Temp Pulse Resp BP Sys/[place]anco Pulse Ox Last 24 Hr 97.1 F-98.4 F 73-88 16-24 137-171/64-81 90-95 Intake and Output 02/02/17 02/03/17 02/03/17 21:59 05:59 13:59 Intake Total 50 / 50 150 / 150 Output Total 3 / 3 2 / 2 Balance 47 / 47 148 / 148 -1 / -1 Weight 165 lb Intake & Output: Intake & Output 02/02/17 02/03/17 02/03/17 21:59 05:59 13:59 Intake Total 50 / 50 150 / 150 Output Total 3 / 3 2 / 2 Balance 47 / 47 148 / 148 -1 / -1 Weight 165 lb Intake: IV 50 / 50 50 / 50 Zosyn 3.375 gm In 50 / 50 50 / 50 Dextrose 5% in Water 50 ml @ 100 mls/hr IV Q6H [facility] Rx#:[id number] Oral 100 / 100 Output: # of times incontinent of 3 / 3 2 / 2 urine Other: Meal applesauce cup Percent of Meal Consumed 100% Feeding Ability Total Assistance General appearance: moderate distress, no acute distress Exam: advanced dementia no significant change since previous day Nonlabored breathing nondistended abdomen no lymphedema Medical - PN: Obj Da - Labs CBC & Chem 7: 02/03/17 04:27 02/03/17 04:27 Labs: Abnormal Lab Results 02/03/17 02/03/17 02/02/17 04:27 04:27 04:28 WBC RBC Hgb RDW Seg Neutrophils % Lymphocytes % 13 L Anion Gap Glucose 106 H Calcium 8.5 L AST 39 H Albumin 3.1 L Albumin/Globulin Ratio 0.9 L 02/02/17 02/01/17 02/01/17 04:28 04:36 04:36 WBC 13.9 H 13.4 H RBC 6.16 H Hgb 17.3 H RDW 14.6 H Seg Neutrophils % 80 H 89 H Lymphocytes % 8 L 6 L Anion Gap 17.0 H Glucose 107 H Calcium AST 43 H Albumin Albumin/Globulin Ratio Meds: Medications Acetaminophen (Tylenol) 500 mg PO TIDP PRN PRN Reason: Pain Last Admin: 02/03/17 07:31 Dose: 500 mg Bacitracin (Bacitracin Topical Oint) 1 dose TOPICAL QID [facility] Last Admin: 02/03/17 07:32 Dose: 1 pkg Divalproex Sodium (Depakote Sprinkles) 250 mg PO BID [facility] Last Admin: 02/03/17 07:32 Dose: 250 mg Guaifenesin (Robitussin Dm) 15 ml PO Q6HP PRN PRN Reason: Allergy Symptoms Hydrocortisone (Hc Crm 1%) 1 dose TOPICAL BID [facility] Last Admin: 02/03/17 08:27 Dose: Not Given Acetaminophen (Ofirmev) 650 mg in 65 mls @ 130 mls/hr IV Q6HP PRN PRN Reason: PAIN/FEVER > 101 Last Admin: 02/02/17 09:08 Dose: 130 mls/hr Piperacillin Sod/Tazobactam (Sod 3.375 gm/ Dextrose) 50 mls @ 100 mls/hr IV Q6H [facility] Last Admin: 02/03/17 05:10 Dose: 100 mls/hr Iron Carb/Multivit/Size [place]/Folic Acid (Multivitamin W/Minerals) 1 tab PO DAILY [facility] Last Admin: 02/03/17 07:32 Dose: 1 tab Ondansetron HCl (Zofran) 4 mg IV Q6HP PRN PRN Reason: Nausea And Vomiting Ipratropium 0.03% Nasal [place] [ Atrovent] 0.03% Nasal [place] 2 dose MIKAYLA TID PRN PRN Reason: Allergy Symptoms Sodium Chloride [ ([place]] Nasal [place]) 2 dose MIKAYLA TID PRN PRN Reason: Allergy Symptoms Brimonidine Tartrate /Timolol [Combigan] 0.2%-0.5% Eye Drops 1 dose OU DAILY [facility] Last Admin: 02/03/17 08:28 Dose: Not Given Latanoprost [Xalatan (] Eye Drops) 1 dose OU QHS [facility] Last Admin: 02/02/17 20:08 Dose: 1 dose Medical - PN: A/P - Time Spent With Patient Total time spent is greater than 50% in coordination of care (as documented) at patient's floor/unit and/or counseling patient: 25 - 35 minutes (1) Change in mental status Status: Acute Assessment and plan: * Complicated UTI- negative cultures to date. Continue Zosyn * Sepsis econdary to combination of above-continue antibiotic coverage. ikely aspiration pneumonia * Acute changes in mental status- ikely secondary to UTI and postoperative state opioid/sedative induced. clinically improved. * Basilar infiltrates-possible early aspiration pneumonia. Continue aspiration precautions/ speech therapy eval and dysphagia diet * History of COPD continue bronchodilators * Deconditioning-Anticipate SNF transfer Plan * continue SGPT * continue antibiotics * possible discharge to SNF in 24 hours Current Visit: Yes
[2017-02-03] MEDS: LATANOPROST EYE OU SCH (19:37)
[2017-02-04] MEDS: PIPERACILLIN SODIUM/TAZOBACTAM 3.375 GM in DEXTROSE 5% IN WATER 50 ML IV SCH (05:29)
[2017-02-04 08:41] LABS: Basophils # (Auto) 0 K/mcL (0.0-0.3); Basophils % (Auto) 0.3 % (0.0-2.0); Eosinophils # (Auto) 0.4 K/mcL (0.0-0.7); Eosinophils % (Auto) 3.8 % (0.0-7.0); Granulocytes % (Auto) 78.1 % (38.0-78.0); Lymphocytes # (Auto) 1.2 K/mcL (1.5-4.8); Lymphocytes % (Auto) 12.3 % (15.5-49.0); Mean Cell Volume 86.8 fL (80.0-100.0); Mean Corpuscular HGB Conc 32.9 g/dL (31.0-36.0); Mean Corpuscular Hemoglobin 28.5 pg (26.0-34.0); Monocytes # (Auto) 0.5 K/mcL (0.1-0.9); Monocytes % (Auto) 5.5 % (1.0-12.0); Platelet Count 218 K/mcL (140-440); Red Cell Distribution Width 14.6 % (11.5-14.5)
[2017-02-04 09:00] LABS: ALT/SGPT 24 U/l (0-40); Albumin 3.1 gm/dL (3.2-5.2); Albumin/Globulin Ratio 0.9 (1.0-2.3); Alkaline Phosphatase 67 U/L (39-117); Bilirubin,Direct < 0.2 mg/dL (0.0-0.3); Blood Urea Nitrogen 18 mg/dl (8-23); Gamma Glutamyl Transpeptidase 13 U/L (8-61); Magnesium 2.2 mg/dL (1.6-2.5); Uric Acid 4.4 mg/dL (2.5-8.0)
[2017-02-04] MEDS: MULTIVIT,THER IRON,CA,FA & MIN 1 TABLET PO SCH (09:10)
[2017-02-04] MEDS: BACITRACIN TOPICAL OINT 15 GM TUBE TOPICAL SCH (09:11)
[2017-02-04] MEDS: DIVALPROEX 125 MG CAP.SPRINK PO SCH (09:11)
[2017-02-04] MEDS: BRIMONIDINE TARTRATE OU SCH (09:11)
[2017-02-04] MEDS: HYDROCORTISONE CRM 1% TUBE 30GM TOPICAL SCH (09:11)
[2017-02-04] MEDS: TIMOLOL OU SCH (09:11)
[2017-02-04] MEDS: EYE OU SCH (09:11)
--- NOTE | 2017-02-04 10:31 | Discharge Summary ---
Medical - DS: Prov Patient information: Note initiated : 02/04/17 at 10:27 am Service Date, if different from initiated Date: [] Patient: Timothy Carrington 81 y/o M admitted on 02/01/17 for Cystoscopy, Circumcision. Chief Complaint: [] Date of admission: 02/01/17 13:13 Discharge date: 02/04/17 Primary care physician: Jessica Quiroga Admitting clinician: Alexander Thornton Consults: 01/30/17 14:18 Consult to Physician [CONS] Routine Comment: Consulting Provider: Alexander Thornton Reason For Exam: Physician to Consult Discharging clinician: Susanna Gutierrez Medical - DS: Meds - Discharge Medications Prescriptions: Amoxicillin/Potassium Clav [Augmentin] 500 mg PO Q8H #15 tablet LORazepam [Ativan] 0.5 mg PO BID PRN #20 tab PRN Reason: Anxiety Active and Home Medications: Home Medications acetaminophen 500 mg tablet 500 mg PO TID PRN tab 12/24/16 [History Confirmed 01/26/17 Last Taken Unknown] brimonidine-timolol 0.2 %-0.5 % eye drops 1 drp OPHTHALMIC ONCE ml 12/24/16 [ History Confirmed 01/26/17 Last Taken Unknown] dextromethorphan-guaifenesin 10 mg-100 mg/5 mL oral liquid 15 ml PO Q6H PRN ml 12/24/16 [History Confirmed 01/26/17 Last Taken Unknown] divalproex 250 mg tablet,delayed release 250 mg PO BID 12/24/16 [History Confirmed 01/26/17 Last Taken Unknown] epinephrine 0.3 mg/0.3 mL injection, auto-injector 0.3 mg SUB-Q ONCE 12/24/16 [ History Confirmed 01/26/17 Last Taken Unknown] hydrocortisone 1 % topical cream 1 applic TOPICAL BID g 12/24/16 [History Confirmed 01/26/17 Last Taken Unknown] ipratropium bromide 0.03 % nasal spray 2 spray INTRANASAL TID PRN ml 12/24/16 [ History Confirmed 01/26/17 Last Taken Unknown] latanoprost 0.005 % eye drops 1 drp OPHTHALMIC QHS ml 12/24/16 [History Confirmed 01/26/17 Last Taken Unknown] lorazepam 0.5 mg tablet 0.5 mg PO BID PRN tab 12/24/16 [History Confirmed 01/26 Last Taken Unknown] multivitamin tablet 1 tab-cap PO QDAY 12/24/16 [History Confirmed 01/26/17 Last Taken Unknown] sodium chloride 0.65 % nasal spray aerosol 2 spray INTRANASAL TID PRN ml [History Confirmed 01/26/17 Last Taken Unknown] Medical - DS: Hosp Hospital course: Mr. Carrington is a 81 year old Male with h/o hematuria and advanced dementia, was admitted to the hospital under urology service for hematuria, the patient undewent a circumcision as well as cystocopy by Urology. Cystscopy did not reveal any masses. The Patient in the post op period unfortunately became more confused and delirous and therefore could not be discharged. Medicine was consulted for further management. The patient has history of advanced dementia, he also had a low grade temp and elevated wbc count, it was thought that his low grade temperature, fever was a result of aspiration pneumonitis, he was seen by ST and recommended that he be on Level 1 texture with NTL no straws The patient was treated conservatively, his pneumonia was treated with zosyn with good response The patient at the time of discharge is afebrile, tolerating po diet well, and no longer agitated. and seems to be progressing back towards baseline. He will be discharged to a SNF facility, where he will continue his home regime of medications, he will be given amox-clav for another 5 days to complete a 7 day course of treatment. Discharge diagnosis: Post Op Delirium, Aspiration PNA - Time Spent with Patient Total time spent providing and/or coordinating discharge services: Less than 30 minutes Medical - DS: Exam - Constitutional Vitals: Vital Signs Temp Pulse Resp BP BP Pulse Ox 02/04/17 06:43 98.8 F 20 131/65 91 02/04/17 03:42 99.1 F H 83 20 127/82 94 02/03/17 23:00 97.9 F 83 18 105/66 93 02/03/17 19:31 98.1 F 86 18 143/77 91 02/03/17 15:31 98.0 F 68 18 128/82 92 02/03/17 11:23 97.8 F 75 18 124/70 91 Intake and Output 02/03/17 02/04/17 02/04/17 21:59 05:59 13:59 Intake Total 200 / 200 50 / 50 Output Total 2 / 2 2 / 2 Balance 198 / 198 48 / 48 - -1 Intake: IV 100 / 100 50 / 50 Zosyn 3.375 gm In 100 / 100 50 / 50 Dextrose 5% in Water 50 ml @ 100 mls/hr IV Q6H [facility] Rx#:[id number] Oral 100 / 100 Output: # of times incontinent of 2 / 2 2 / 2 urine Other: Meal Dinner Breakfast Percent of Meal Consumed 75% 25% Feeding Ability Total Assistance Total Assistance Weight 166 lb Additional comments: Constitutional; Afebrile, cooperative, awake, follows commands. Eyes- No icterus, , No periorbital swelling Ears- Ext ear normal, hearing normal to conversation. Neck- Midline trachea, supple Respiratory system: Air Entry equal on both sides, No crackles or wheezing, no rhonchi. CVS- Rate rhythm regular, S1,S2 heard, no gallop, no rub. Abdomen- Soft nontender abdomen, no organomegaly, no tenderness, no guarding or rigidity, [employer]- AOOx1, moving all extremities, no gross focal deficit noted. Medical - DS: Data Labs on day of discharge: Labs from last 24 hours 02/04/17 02/04/17 08:15 08:15 WBC 9.5 RBC 5.50 Hgb 15.7 Hct 47.8 MCV 86.8 MCH 28.5 MCHC 32.9 RDW 14.6 H Plt Count 218 MPV 8.7 Gran % 78.1 H Lymph % (Auto) 12.3 L [place] % (Auto) 5.5 Eos % (Auto) 3.8 Baso % (Auto) 0.3 Gran # 7.4 Lymph # (Auto) 1.2 L [place] # (Auto) 0.5 Eos # (Auto) 0.4 Baso # (Auto) 0 Sodium 142 Potassium 4.1 Chloride 106 Carbon Dioxide 25 Anion Gap 11.0 BUN 18 Creatinine 1.1 GFR Calculation 63 Glucose 100 Uric Acid 4.4 Calcium 8.5 L Phosphorus 2.7 Magnesium 2.2 Total Bilirubin 0.6 Direct Bilirubin < 0.2 GGT 13 AST 32 ALT 24 Alkaline Phosphatase 67 Lactate Dehydrogenase 177 Total Protein 6.4 Albumin 3.1 L Globulin 3.3 Albumin/Globulin Ratio 0.9 L Triglycerides 85 Preliminary micro results at discharge 01/30/17 14:35 Blood Culture - Preliminary Blood 01/30/17 14:29 Blood Culture - Preliminary Blood 02/01/17 11:27 Blood Culture - Preliminary Blood 02/01/17 09:56 Blood Culture - Preliminary Blood Medical - DS: A/P - Patient/Caregiver Discharge Instructions Activity: increase activity as tolerated Diet: Thickened Liquids (see instructins for diet. ) Additional Instructions: Drink at least 8-10 glasses of fluid daily. If dressing falls off leave off. You may have some bleeding when you urinate for up to 5 days. Follow up with Urology in 2 weeks. Follow up with PCP in 7-14 days Go to the ER if worsening condition, fever, chills or any other concern. Take amox-clav for another 5 days Diet is level 1 diet with [place] thick liquids , No Straws Pt needs assisted feeding. ST, OT and PT eval and treatment at SNF facility. Transport via Ambulance. Prescriptions: Amoxicillin/Potassium Clav [Augmentin] 500 mg PO Q8H #15 tablet LORazepam [Ativan] 0.5 mg PO BID PRN #20 tab PRN Reason: Anxiety Other Amb Orders: OT Discharge Order Location: Determined By Patient Physical Therapy at Discharge - General Location: Determined By Patient ST Discharge Order Location: Determined By Patient - Follow up Plan Follow up with: Timothy Espinosa MD [Physician] - 02/27/17 9:30 am Jessica Quiroga MD [Primary Care Provider] - Disposition: Xfer SNF Prognosis: Fair Rehab Potential: Fair I certify that the patient requires SNF services: Yes Overall status at discharge: patient is progressing back to baseline
--- NOTE | 2017-02-05 08:09 | EKG Interpretations ---
EKG from 01/26/2017: Normal sinus rhythm at 60. Right bundle branch block. Abnormal EKG. STEPHANIE:kerry Job ID: [id number] Doc ID: [id number] Tyler Reid MD
== END 2017-02-04 11:30 | DRG 695 ==
LOC: SUR 07:21 → MEDSUR 07:21